=== PATIENT | male | born 1975 ===

== ENCOUNTER → 2023-11-18 06:22 | Day surgery (SDC) | payer BC, SELFPAY | LOC: GI 06:22 | PROVIDERS: ATTENDING PHYSICIAN Surgery | DX: Z12.11 Encounter for screening for malignant neoplasm of colon (principal); K64.9 Unspecified hemorrhoids; K63.5 Polyp of colon | CPT/HCPCS: 45380; 46221; 88305 ==

== ENCOUNTER 2024-03-17 06:11 | Inpatient (IN) | payer BC, SELFPAY ==
[2024-03-17] VITALS (11 sets, daily range): BP systolic 131–176; BP diastolic 78–106; BMI 23.1
[2024-03-17] MEDS: TYLENOL 1000 MG PO (06:27)
[2024-03-17] MEDS: NORMOSOL-R 1000 IV (06:28)
[2024-03-17 07:07] LABS: Hemoglobin 10.9 g/dL (13.0-18.0); Mean Corp Hgb Conc. 34.1 g/dL (33.0-37.0); Mean Corpuscular Hgb 28.1 pg (27.0-31.0); Mean Corpuscular Volume 82.5 fL (80.0-94.0); Mean Platelet Volume 10.1 fL (7.4-10.4); Platelet Count 261 10^3/uL (130-400); Red Blood Cell Count 3.88 10^6/uL (4.70-6.10); Red Cell Dist. Width 14.2 % (11.5-14.5); White Blood Cell Count 7.7 10^3/uL (4.8-10.8)
[2024-03-17] MEDS: DILAUDID 0.5 MG IV (08:14)
[2024-03-17] MEDS: DILAUDID 0.25 MG IV ×3 (08:27→08:54)
[2024-03-17] MEDS: ANCEF 5 IV (10:15)
--- NOTE | 2024-03-17 10:52 | W.PN.UPDATE ---
Update Note
Progress Note Update
I admitted this patient to the hospital due to a high level of expected pain and physical limitations anticipated following OR IF of his hip fracture. However he did well postoperatively and on the day of surgery was able to ambluate, urinate and
had well controlled so he and I mutually made the decision for discharge from the hospital later in the day of surgery.
--- NOTE | 2024-03-17 16:36 | W.PN.UPDATE ---
Update Note
Progress Note Update
To clarify my previous note, I admitted this patient to INPATIENT ADMISSION STATUS at the hospital due to a high level of expected pain and physical limitations anticipated following OR IF of his hip fracture. However he did well postoperatively
and on the day of surgery was able to ambluate, urinate and had well controlled so he and I mutually made the decision for discharge from the hospital later in the day of surgery.
== END 2024-03-17 10:45 | disposition home or self-care (01) | DRG 482 ==
LOC: PACUI 06:11
PROVIDERS: Student in an Organized Health Care Education/Training Program; ADMITTING PHYSICIAN Orthopaedic Surgery
PROC: 0QS604Z Reposition Right Upper Femur with Internal Fixation Device, Open Approach (ICD-10-PCS; 2024-03-17)
DX: S72.142A Displaced intertrochanteric fracture of left femur, initial encounter for closed fracture (principal); V19.9XXA Pedal cyclist (driver) (passenger) injured in unspecified traffic accident, initial encounter; Y93.89 Activity, other specified
CPT/HCPCS: 27244; C1713; C1776; 73502; 76000; 85027

== ENCOUNTER 2024-05-07 09:09 | Outpatient (RCR) | payer BC, SELFPAY | END 2024-05-07 23:59 | disposition home or self-care (01) | LOC: RPT 09:09 | PROVIDERS: ATTENDING PHYSICIAN Orthopaedic Surgery | DX: Z47.89 Encounter for other orthopedic aftercare (principal); S72.145D Nondisplaced intertrochanteric fracture of left femur, subsequent encounter for closed fracture with routine healing; M62.81 Muscle weakness (generalized); Z73.6 Limitation of activities due to disability | CPT/HCPCS: 97110; 97112; 97162 ==

== ENCOUNTER 2024-05-13 09:06 | Outpatient (RCR) | payer BC, SELFPAY | END 2024-05-28 06:58 | disposition home or self-care (01) | LOC: RPT 09:06 | PROVIDERS: ATTENDING PHYSICIAN Orthopaedic Surgery | DX: Z47.89 Encounter for other orthopedic aftercare (principal); S72.145D Nondisplaced intertrochanteric fracture of left femur, subsequent encounter for closed fracture with routine healing; R26.2 Difficulty in walking, not elsewhere classified; M62.81 Muscle weakness (generalized); V18.0XXD Pedal cycle driver injured in noncollision transport accident in nontraffic accident, subsequent encounter | CPT/HCPCS: 97110; 97112 ==

== ENCOUNTER → 2024-07-01 11:28 | Outpatient (REF) | payer BC, SELFPAY | LOC: HWRAD 11:28 | PROVIDERS: ATTENDING PHYSICIAN Family Medicine | DX: Z87.81 Personal history of (healed) traumatic fracture (principal); Z13.820 Encounter for screening for osteoporosis | CPT/HCPCS: 77080 ==

== ENCOUNTER → 2024-09-30 10:09 | Outpatient (REF) | payer BC, SELFPAY | LOC: HWRAD 10:09 | PROVIDERS: ATTENDING PHYSICIAN Physician Assistant; FAMILY PHYSICIAN Family Medicine | DX: M81.8 Other osteoporosis without current pathological fracture (principal) | CPT/HCPCS: 72040; 72070; 72100 ==

== ENCOUNTER → 2024-12-14 09:02 | Outpatient (REF) | payer BC, SELFPAY | LOC: HWRAD 09:02 | PROVIDERS: ATTENDING PHYSICIAN Student in an Organized Health Care Education/Training Program; FAMILY PHYSICIAN Family Medicine | DX: M81.8 Other osteoporosis without current pathological fracture (principal) | CPT/HCPCS: 73120 ==